=== PATIENT | male | born 1990 | race Caucasian/White ===

== ENCOUNTER → 2019-02-05 08:11 | Outpatient (CLI) | payer OTHER, SELFPAY ==
--- NOTE | 2019-02-05 | DI.MRI.S_ITS ---
PROCEDURE: MR ABDOMEN WO/W CON INDICATIONS: abdominal pain TECHNIQUE: Coronal HASTE, axial 2D FLASH in- and [id number]; axial breath-hold T2 FSE. Dynamic axial VIBE during the administration of contrast; post-contrast coronal VIBE or 2D FLASH with fat saturation from the hepatic dome to the iliac crests. Optional diffusion weighted imaging and ADC may be performed. COMPARISON: None. FINDINGS: Image quality: Excellent. Lung bases: No basal pleural effusions. Heart size is normal. Solid organs: No discrete hepatic mass, suspicious enhancement, or abnormal areas of washout. Gallbladder appears within normal limits without gallstones. Biliary system is non dilated. No filling defects within the common bile duct to suggest choledocholithiasis. Pancreas is normal in morphology without a discrete mass lesion identified. No pancreatic duct dilatation. No peripancreatic edema or fluid collections. Spleen is normal in size and enhancement. No adrenal nodules. The kidneys demonstrate no hydronephrosis. Nodes and vessels: No retroperitoneal or mesenteric adenopathy by size criteria. Aorta and inferior vena cava are normal in size. Bowel and peritoneum: Visualized bowel loops are normal in caliber. No free fluid. Bones and soft tissues: No ventral hernias. Bone marrow is normal in overall signal. IMPRESSION: 1. No acute intra-abdominal abnormality identified. Specifically, no evidence of cholelithiasis or cholecystitis. Dictated by: Miguel Ángel Dalton M.D. on 02/05/2019 at 16:32 Approved by: Miguel Ángel Dalton M.D. on 02/05/2019 at 16:47
== END ==
PROVIDERS: Visit Provider Preventive Medicine Public Health & General Preventive Medicine
DX: R10.9 Unspecified abdominal pain (principal)
CPT/HCPCS: 74183; A9579